=== PATIENT | female | born 1970 | race Caucasian/White ===

== ENCOUNTER 2016-05-30 13:20 | Emergency (ER) | payer BC ==
[~2016-05-30] VITALS: Ht 160 cm; Wt 113.4 kg
[2016-05-30 13:27] VITALS: TEMP 36.5; Ht 160 cm; Wt 113.4 kg
[2016-05-30 14:19] LABS: BASO % 0.4 %; BASO ABS # 0.04 K/uL (0-0.2); COMPLETE YES; EOS % 1.9 %; HEMATOCRIT 38.6 % (37-47); IG% 0.4 %; LYMPH % 22.9 %; LYMPH ABS # 2.05 K/uL (1.2-3.4); MEAN CELL VOLUME 82.5 fL (80-100); MEAN CORPUSCULAR HEMOGLOBIN 29.3 pg (25-34); MEAN CORPUSCULAR HGB CONC 35.5 g/dl (32-36); MONO % 6.5 %; NEUT % 67.9 %; PLATELET COUNT 215 K/uL (130-400); RED BLOOD COUNT 4.68 M/uL (4.2-5.4); WHITE BLOOD COUNT 8.95 K/uL (4.8-10.8)
--- NOTE | 2016-05-30 14:19 | EMERGENCY ROOM VISIT NOTE ---
History Report prepared by Jose: Shawn Soares Under the Supervision of: Dr. Vera Watts D.O. First contact with patient: 14:00 Chief Complaint: CARDIAC ASSESSMENT Stated Complaint: HEART PALPITATIONS Nursing Triage Summary: Triage note: pt reports "for the past 10 days when i lay down at night i feel like my chest is pounding and today i feel like my heart is racing." pt denies any chest pain. History of Present Illness The patient is a 45 year old female who presents to the Emergency Room with complaints recurrent palpitations for the past ten days. The patient has felt her heart pounding every night when she lays down to sleep for the past 10 days. She was not experiencing any daytime palpitations until today when she noticed her heart racing. She has not felt her heart pounding yet today but may have noticed some fluttering. She has never felt palpitations like this before. She was also feeling a little lightheaded this morning. She denies any chest pain or pressure, shortness of breath, nausea, or swelling of the legs. The patient does not have any history of cardiac disease and has never followed up with a Floor [employer]. She does have a maternal family history of unspecified heart disease. The patient denies any recent dietary changes, changes in exercise habits, recent illness, or overwhelming stress. She did travel to [place] last week which consisted of [address] The patient cut back on caffeine when she first noticed the palpitations and usually only drinks one cup of coffee per day. She has not had any recent changes in her bowel movements or urinary habits. The patient is s/p endometrial ablation two years ago, and her menses have been light. She is not on any hormonal control. She denies any history of thyroid disorder. She does not drink or smoke. Source of History: patient Onset: ten days ago Position: other (heart) Quality: other (palpitations) Timing: other (recurrent) Associated Symptoms: No SOB, No chest pain, No nausea, No urinary symptoms Review of Systems See HPI for pertinent positives & negatives. A total of 10 systems reviewed and were otherwise negative. Past Medical & Surgical Surgical Problems: (1) History of endometrial ablation Family History Heart disease Social History Smoking Status: Never Smoker Alcohol Use: none Housing Status: lives with family Current/Historical Medications Scheduled PRN Lorazepam (Lorazepam), 1 TAB PO DAILY PRN for Anxiety/Agitation Miscellaneous Medications None (Patient States No Home Meds) Allergies Coded Allergies: No Known Allergies (Verified , 05/30/16) Physical Exam Vital Signs Date Time Temp Pulse Resp B/P Pulse Ox O2 Delivery O2 Flow Rate FiO2 05/30/16 17:08 77 16 97 05/30/16 17:03 82 13 92 05/30/16 16:58 77 20 95 05/30/16 16:53 76 23 96 05/30/16 16:48 79 19 98 05/30/16 16:43 83 22 99 05/30/16 16:41 126/81 05/30/16 16:28 80 20 96 05/30/16 16:23 78 18 95 05/30/16 16:18 80 15 97 05/30/16 16:13 70 16 99 05/30/16 16:08 76 20 98 05/30/16 16:03 77 18 98 05/30/16 15:58 74 19 97 05/30/16 15:54 124/71 05/30/16 15:54 83 20 124/71 98 Room Air 05/30/16 15:53 84 97 05/30/16 15:48 76 19 98 05/30/16 15:43 74 20 98 05/30/16 15:38 79 17 97 05/30/16 15:33 165/105 100 05/30/16 15:32 158/103 05/30/16 15:31 141/91 05/30/16 15:30 77 16 97 05/30/16 15:30 77 18 141/91 99 Room Air 95 158/103 87 165/105 05/30/16 15:25 78 20 99 05/30/16 15:20 77 18 100 05/30/16 15:15 89 25 99 05/30/16 15:10 81 11 98 05/30/16 15:05 76 20 100 05/30/16 15:00 71 13 98 05/30/16 14:55 73 15 98 05/30/16 14:50 74 16 98 05/30/16 14:45 83 16 98 05/30/16 14:41 136/80 05/30/16 14:41 76 15 136/80 97 Room Air 05/30/16 14:40 79 20 05/30/16 14:35 81 13 05/30/16 14:20 75 15 05/30/16 14:15 80 15 05/30/16 14:10 81 18 05/30/16 14:05 83 18 05/30/16 14:00 82 13 05/30/16 13:55 84 17 05/30/16 13:55 80 05/30/16 13:27 36.5 85 18 151/82 99 Room Air Physical Exam GENERAL: alert, well appearing, well nourished, no distress, non-toxic, obese EYE EXAM: normal conjunctiva, PERRL and EOM's grossly intact OROPHARYNX: no exudate, no erythema, lips, buccal mucosa, and tongue normal and mucous membranes are moist NECK: supple, no nuchal rigidity, no adenopathy, non-tender LUNGS: Clear to auscultation. Normal chest wall mechanics HEART: no murmurs, S1 normal and S2 normal ABDOMEN: abdomen soft, non-tender, normo-active bowel sounds, no masses, no rebound or guarding. BACK: Back is symmetrical on inspection and there is no deformity, no midline tenderness, no CVA tenderness. SKIN: no rashes and no bruising UPPER EXTREMITIES: upper extremities are grossly normal. LOWER EXTREMITIES: No pitting edema. NEURO EXAM: Normal sensorium, cranial nerves II-XII grossly intact, normal speech, no gross weakness of arms, no gross weakness of legs. No drift. Finger to nose intact. Gross sensation intact. Medical Decision & Procedures ER Provider Diagnostic Interpretation: Xray results per the radiologist and my interpretation. CHEST ONE VIEW PORTABLE CLINICAL HISTORY: Palpitations. COMPARISON STUDY: Chest radiograph July 01, 2010. FINDINGS: Lung volumes are normal. There is no pneumothorax or pleural effusion. Cardiac size is normal. Mediastinal contours are normal. No consolidation is identified. IMPRESSION: No acute cardiopulmonary findings. Electronically signed by: Nelson Maxwell M.D. 05/30/2016 2:30 PM Dictated Date/Time: 05/30/2016 2:28 PM Laboratory Results 05/30/16 14:00 Red Blood Count 4.68, Mean Corpuscular Volume 82.5, Mean Corpuscular Hemoglobin 29.3, Mean Corpuscular Hemoglobin Concent 35.5, Mean Platelet Volume 11.0, Neutrophils (%) (Auto) 67.9, Lymphocytes (%) (Auto) 22.9, Monocytes (%) (Auto) 6.5, Eosinophils (%) (Auto) 1.9, Basophils (%) (Auto) 0.4, Neutrophils # (Auto) 6.07, Lymphocytes # (Auto) 2.05, Monocytes # (Auto) 0.58, Eosinophils # (Auto) 0.17, Basophils # (Auto) 0.04 05/30/16 14:00 Test 05/30/16 14:00 05/30/16 14:40 White Blood Count 8.95 K/uL (4.8-10.8) Red Blood Count 4.68 M/uL (4.2-5.4) Hemoglobin 13.7 g/dL (12.0-16.0) Hematocrit 38.6 % (37-47) Mean Corpuscular Volume 82.5 fL (80-100) Mean Corpuscular Hemoglobin 29.3 pg (25-34) Mean Corpuscular Hemoglobin Concent 35.5 g/dl (32-36) Platelet Count 215 K/uL (130-400) Mean Platelet Volume 11.0 fL (7.4-10.4) Neutrophils (%) (Auto) 67.9 % Lymphocytes (%) (Auto) 22.9 % Monocytes (%) (Auto) 6.5 % Eosinophils (%) (Auto) 1.9 % Basophils (%) (Auto) 0.4 % Neutrophils # (Auto) 6.07 K/uL (1.4-6.5) Lymphocytes # (Auto) 2.05 K/uL (1.2-3.4) Monocytes # (Auto) 0.58 K/uL (0.11-0.59) Eosinophils # (Auto) 0.17 K/uL (0-0.5) Basophils # (Auto) 0.04 K/uL (0-0.2) RDW Standard Deviation 42.7 fL (36.4-46.3) RDW Coefficient of Variation 14.2 % (11.5-14.5) Immature Granulocyte % (Auto) 0.4 % Immature Granulocyte # (Auto) 0.04 K/uL (0.00-0.02) D-Dimer < 190 ug/L FEU (0-500) Anion Gap 9.0 mmol/L (3-11) Est Creatinine Clear Calc Drug Dose 127.7 ml/min Estimated GFR () 121.9 Estimated GFR (Non- 105.2 BUN/Creatinine Ratio 12.9 (10-20) Calcium Level 9.0 mg/dl (8.5-10.1) Magnesium Level 2.0 mg/dl (1.8-2.4) Total Bilirubin 0.5 mg/dl (0.2-1) Aspartate Amino Transf (AST/SGOT) 26 U/L (15-37) Alanine Aminotransferase (ALT/SGPT) 41 U/L (12-78) Alkaline Phosphatase 79 U/L (45-117) Troponin I < 0.015 ng/ml (0-0.045) Total Protein 7.5 gm/dl (6.4-8.2) Albumin 3.5 gm/dl (3.4-5.0) Globulin 4.0 gm/dl (2.5-4.0) Albumin/Globulin Ratio 0.9 (0.9-2) Thyroid Stimulating Hormone (TSH) 4.340 uIu/ml (0.300-4.500) Urine Color YELLOW Urine Appearance CLEAR (CLEAR) Urine pH 6.0 (4.5-7.5) Urine Specific [place] 1.004 (1.000-1.030) Urine Protein NEG (NEG) Urine Glucose (UA) NEG (NEG) Urine Ketones NEG (NEG) Urine Occult Blood NEG (NEG) Urine Nitrite NEG (NEG) Urine Bilirubin NEG (NEG) Urine Urobilinogen NEG (NEG) Urine Leukocyte Esterase NEG (NEG) Urine Test NEG (NEG) Laboratory results per my review. Medications Administered Medications (Trade) Dose Ordered Sig/Deep Route Start Time Stop Time Status Last Admin Dose Admin Sodium Chloride (Nss 1000ml) 1,000 ml @ 999 mls/hr Q1H1M STAT IV 05/30/16 15:20 05/30/16 16:20 DC 05/30/16 15:25 999 MLS/HR Lorazepam (Ativan Inj) 0.5 mg NOW STAT IV 05/30/16 15:20 05/30/16 15:22 DC 05/30/16 15:25 0.5 MG ECG Indication: palpitations Rate (beats per minute): 89 Rhythm: normal sinus Findings: no acute ischemic change, other (normal axis, normal intervals) ED Course 1403: The patient was evaluated in room A12b. A complete history and physical exam was performed. 1515: Reassessed the patient. She is still having palpitations. 1520: Ativan 0.5 mg IV, NSS 1000 ml @ 999 mls/hr. 1645: Reassessed the patient. She is feeling better. She will follow up as an outpatient. Medical Decision Differential diagnosis includes anxiety, electrolyte abnormality, dehydration, thyroid dysfunction, PE. Pt improved with IVF and ativan. No dysrhythmias noted on tele. No other concurrent sx, VS stable. Doubt acs, pe, dissection, occult infection, doubt thyroid storm, tamponade, effusion, perf, gi bleed. Pt improved, discussed ddx at bedside, discussed sx to watch/return for, f/u with PCP and likely cards eval need for additional testing, she verbalized understanding and was agreeable with plan. Hypokalemia mild, discussed dietary source of potassium with pt. Impression Primary Impression: Palpitations Additional Impressions: Anxiety Obesity Scribe Attestation The scribe's documentation has been prepared under my direction and personally reviewed by me in its entirety. I confirm that the note above accurately reflects all work, treatment, procedures, and medical decision making performed by me. Departure Information Dispostion Home / Self-Care Prescriptions Lorazepam (LORAZEPAM) 0.5 Mg Tab 1 TAB PO DAILY Y for Anxiety/Agitation for 30 Days, #15 TAB Prov: Vera Watts, 05/30/16 Referrals Juliana Liao M.D. (PCP) Forms IMPORTANT VISIT INFORMATION Patient Instructions My [facility] Additional Instructions Please call and follow-up with your family doctor and cardiology for further evaluation. If you have any worsening symptoms, develop chest pain, trouble breathing, dizziness, vomiting, fevers, or you have any other new or concerning symptoms, please return to the emergency room. You may try the medication as prescribed. Please do not take it and drive. Problem Qualifiers Additional Impressions: Obesity Obesity type: due to excess calories Obesity severity: morbid Qualified Codes: E66.01 - Morbid (severe) obesity due to excess calories
--- NOTE | 2016-05-30 14:31 | DIAGNOSTIC IMAGING REPORT ---
CHEST ONE VIEW PORTABLE CLINICAL HISTORY: Palpitations. COMPARISON STUDY: Chest radiograph July 01, 2010. FINDINGS: Lung volumes are normal. There is no pneumothorax or pleural effusion. Cardiac size is normal. Mediastinal contours are normal. No consolidation is identified. IMPRESSION: No acute cardiopulmonary findings. Electronically signed by: Nelson Maxwell M.D. 05/30/2016 2:30 PM Dictated Date/Time: 05/30/2016 2:28 PM
[2016-05-30 14:35] LABS: ALT/SGPT 41 U/L (12-78); BLOOD UREA NITROGEN 9 mg/dl (7-18); BUN/CREATININE RATIO 12.9 (10-20); CARBON DIOXIDE 25 mmol/L (21-32); CHLORIDE 105 mmol/L (98-107); CREATININE 0.66 mg/dl (0.60-1.20); GLUCOSE 90 mg/dl (70-99); POTASSIUM 3.4 mmol/L (3.5-5.1); SODIUM 139 mmol/L (136-145)
[2016-05-30 14:45] LABS: ALB/GLOB RATIO 0.9 (0.9-2); ALKALINE PHOSPHATASE 79 U/L (45-117); AST/SGOT 26 U/L (15-37)
[2016-05-30 14:59] LABS: URINE APPEARANCE CLEAR (CLEAR); URINE BILIRUBIN NEG (NEG); URINE COLOR YELLOW; URINE NITRITE NEG (NEG); URINE SPECIFIC GRAVITY 1.004 (1.000-1.030); UROBILINOGEN NEG (NEG); ZZUR CULT IF INDIC CLEAN CATCH NO
[2016-05-30 15:06] LABS: MANUAL MICROSCOPIC REQUIRED? NO; REVIEW REQ? NO
[2016-05-30] MEDS ORDERED: LORAZEPAM 2 MG/ML 1 ML VIAL IV STA (15:20)
[2016-05-30] MEDS ORDERED: SODIUM CHLORIDE 0.9% 1000ML 1,000 ML IV STA (15:20)
[2016-05-30] MEDS ORDERED: LORAZEPAM 2 MG/ML 1 ML VIAL ONE (15:29)
[2016-05-30 16:41] VITALS: BP 126/81
[2016-05-30] MEDS ORDERED: LORA0.5T12 PO (16:54)
[2016-05-30 17:08] VITALS: PULSE 77; O2SAT 97
== END 2016-05-30 17:20 | disposition home or self-care (01) ==
LOC: C.EDB 13:21 → C.EDA 17:20
DX: R00.2 Palpitations (principal); F41.9 Anxiety disorder, unspecified; E66.9 Obesity, unspecified; Z82.49 Family history of ischemic heart disease and other diseases of the circulatory system

== ENCOUNTER → 2016-07-17 | Outpatient (CLI) | payer BC ==
--- NOTE | 2016-07-17 15:54 | MAMMOGRAPHY REPORT ---
BILATERAL DIGITAL SCREENING MAMMOGRAM TOMOSYNTHESIS WITH CAD: 07/17/2016 TECHNIQUE: Breast tomosynthesis in addition to standard 2D mammography was performed. Current study was also evaluated with a Computer Aided Detection (CAD) system. COMPARISON: Comparison is made to exams dated: 07/12/2014 mammogram, 07/16/2015 mammogram, 11/01/2013 m ammogram, 04/25/2013 ultrasound, 04/25/2013 mammogram, and 10/14/2012 ultrasound - [facility]. BREAST COMPOSITION: The tissue of both breasts is heterogeneously dense, which may obscure small ma sses. FINDINGS: No suspicious masses, calcifications, or areas of architectural distortion are noted in e ither breast. There has been no significant interval change compared to prior exams. IMPRESSION: ACR BI-RADS CATEGORY 1: NEGATIVE There is no mammographic evidence of malignancy. A 1 year screening mammogram is recommended. The p atient will receive written notification of the results. Approximately 10% of breast cancers are not detected with mammography. A negative mammographic repor t should not delay biopsy if a clinically suggestive mass is present. Lisseth Lozano M.D. /:07/17/2016 13:54:10 Picture Booker: Neli Fatima, [facility] letter sent: Normal 1/2 BI-RADS Code: ACR BI-RADS Category 1: Negative
== END | disposition home or self-care (01) ==
LOC: C.MAMM 08:59
PROVIDERS: ATTEND Obstetrics & Gynecology
DX: Z12.31 Encounter for screening mammogram for malignant neoplasm of breast (principal)

== ENCOUNTER → 2016-07-22 | Outpatient (CLI) | payer BC | END | disposition home or self-care (01) | LOC: C.PAPS 11:55 | PROVIDERS: ATTEND Obstetrics & Gynecology | DX: Z01.419 Encounter for gynecological examination (general) (routine) without abnormal findings (principal) ==